=== PATIENT | male | born 1995 | race African-American/Black ===

== ENCOUNTER 2017-03-29 11:48 | Emergency (ER) | payer SELFPAY ==
[2017-03-29] MEDS ORDERED: NO HOME MEDICATION XX (12:17)
[2017-03-29 12:31] LABS: BASO % 0.1 % (0-2); EOS % 0.1 % (0-7); HCT-HEMATOCRIT 45.1 % (36.0-53.5); HGB-HEMOGLOBIN 15.3 gm/dl (13.5-17.0); LYMPH ABSOLUTE COUNT 0.9 tho/cmm (0.8-4.5); MCH (MEAN CORPUSCULAR HGB) 29.7 pg (28.0-32.0); MCHC MEAN CORPUSCULAR HGB CONC 33.9 % (32.0-36.0); MCV (MEAN CELL VOLUME) 87.6 fl (82.0-96.0); MEAN PLATELET VOLUME 9.2 cmc (9.4-12.4); MONO % 5.2 % (0-12); MONOCYTE ABSOLUTE COUNT 0.4 tho/cmm (0.0-1.2); NEUTROPHIL ABSOLUTE COUNT 6.7 tho/cmm (1.6-8.0); NEUTROPHIL-AUTOMATED 6.7 tho/cmm (1.6-8.0); NEUTROPHILS % 83.6 % (40-80); PLATELET COUNT 354 tho/cmm (150-450); RED BLOOD COUNT 5.15 mil/cmm (4.40-5.70); RED CELL DISTRIBUTION WIDTH 12.3 % (12.4-16.4)
[2017-03-29 12:48] LABS: ACETAMINOPHEN LEVEL <3 ug/ml (10-30); ALBUMIN 4.5 g/dl (3.5-5.0); ALCOHOL (ETOH) <10 mg/dl (<10); ALKALINE PHOSPHATASE 109 U/L (60-225); ALT/SGPT 38 U/L (12-78); ANION GAP 15 mmol/L (0-20); AST/SGOT 28 U/L (10-40); BILIRUBIN,TOTAL 0.8 mg/dl (0.0-1.5); BLOOD UREA NITROGEN 6 mg/dl (6-24); CALCIUM 9.6 mg/dl (8.5-10.5); CARBON DIOXIDE-VENOUS 29 mmol/L (22-32); CHLORIDE 101 mmol/l (96-110); CREATININE 0.87 mg/dl (0.60-1.30); GLUCOSE 123 mg/dL (70-110); POTASSIUM 3.9 mmol/L (3.7-5.1); SODIUM 141 mmol/L (135-145); eGFR VALUE FOR BLACK >90 mL/Min
[2017-03-29 12:49] LABS: SALICYLATE <2.8 mg/dl (2.8-20)
== END 2017-03-29 14:14 ==
LOC: EDMED 11:48
PROVIDERS: Emergency Medicine
DX: R11.2 Nausea with vomiting, unspecified (principal); T43.625A Adverse effect of amphetamines, initial encounter; F17.200 Nicotine dependence, unspecified, uncomplicated
CPT/HCPCS: G0480; J1885; J2405; J7030